=== PATIENT | female | born 1980 | race Hispanic/Latino ===

== ENCOUNTER → 2018-12-14 | Outpatient (CLI) | payer OTHER ==
--- NOTE | 2018-12-14 09:58 | REP ---
BILATERAL MAMMOGRAM BASELINE STUDY: Family history of breast cancer at age 42 in maternal grandmother. [facility] lifetime risk of breast cancer at 13.2%. MLO and CC view of both breasts performed. Moderate heterogeneous fibroglandular tissue is seen diffusely bilaterally. Asymmetric density is seen in the left axillary tail on the left MLO view. This may simply represent asymmetric fibroglandular tissue in this region. I see no other evidence of mass, architectural distortion or clustered microcalcifications. IMPRESSION: BIRADS 0: BI-RADS/ACR category 0 mammogram, Incomplete: Need additional imaging evaluation and/or prior mammograms for comparison. Asymmetric fibroglandular density in the left axillary tail region only seen on the MLO view. Recommend spot compression MLO view of the left breast at that site and an axillary CC view of the left breast. Other views and ultrasound may also be necessary. This mammogram was interpreted with the aid of an FDA-approved computer-aided detection system. The patient states he/she had a clinical breast exam in 10/2018. The patient letter being requested is M0. Electronically Signed by Wesley Leigh MD 12/14/2018 05:35 P
== END ==
LOC: M RAD 08:56
PROVIDERS: ATTEND Family Medicine
DX: Z12.31 Encounter for screening mammogram for malignant neoplasm of breast (principal)

== ENCOUNTER → 2018-12-26 | Outpatient (CLI) | payer OTHER ==
--- NOTE | 2018-12-26 15:14 | REP ---
DIAGNOSTIC MAMMOGRAM LEFT BREAST WITH LEFT BREAST ULTRASOUND: Spot compression views and tomographic images left breast performed and correlated with the recent baseline mammogram 12/14/2018. Once again there is asymmetric fibroglandular tissue seen in the region of the left axillary tail. A few left axillary nodules are most consistent with left axillary lymph nodes. There is no architectural distortion or suspicious mass in the region of the left axillary tail. Real-time sonographic evaluation of the left axillary tail and adjacent axilla demonstrates a small lymph node which appears to be normal in morphology with an echogenic hilum. This measures 8 x 9 x 11 mm. No other sonographic abnormalities are seen in this region. IMPRESSION: ACR 3 probably benign. Asymmetric fibroglandular tissue in the left axillary tail region is likely a normal variant. There are adjacent lymph nodes which do not appear suspicious. Recommend 6 month followup mammogram of the left breast to ensure stability. BIRADS 3: BI-RADS/ACR category 3 mammogram. Probably Benign Findings. This mammogram was interpreted with the aid of an FDA-approved computer-aided detection system. The patient letter being requested is M3. Electronically Signed by Wesley Leigh MD 12/27/2018 04:19 P
== END ==
LOC: M RAD 11:20
PROVIDERS: ATTEND Family Medicine
DX: R92.2 Inconclusive mammogram (principal); N60.32 Fibrosclerosis of left breast

== ENCOUNTER → 2019-08-16 | Outpatient (CLI) | payer OTHER ==
--- NOTE | 2019-08-16 15:04 | REPMRS ---
Patient History The patient states she has not had a clinical breast exam in over a year. Family history of breast cancer at age 42 in maternal grandmother. Diagnostic Unilateral Mammo: Left Breast - August 16, 2019 - Exam #: [id number] CC and MLO view(s) were taken of the left breast. Technologist: Scarlett Sandhu, Technologist Prior study comparison: December 26, 2018, left breast digital mammo diagnostic unilateral, performed at [facility]. December 14, 2018, bilateral digital mammo screening bilat, performed at [facility]. FINDINGS: The breast tissue is heterogeneously dense. This may lower the sensitivity of mammography. The Volpara volumetric breast density category is: C . The previously noted slightly asymmetric breast parenchymal opacity near the axilla on the left is again noted unchanged. There has been no other change in the appearance of the left breast parenchyma in the interval since the prior examination. No mass, architectural distortion, or microcalcific grouping has developed. No suspicious finding. 3-D tomosynthesis shows no additional findings. Assessment: BI-RADS/ACR Category 3 mammogram. Probably Benign Findings. Recommendation Routine screening mammogram of both breasts in 6 months. This patient's Lifetime Breast Cancer RIsk is estimated at 13.2 %. This mammogram was interpreted with the aid of an FDA-approved computer-aided dectection system. Electronically Signed By: Dennis Hooper MD 08/16/19 [id number]
== END ==
LOC: M WHC 14:08
PROVIDERS: ATTEND Family Medicine
DX: R92.8 Other abnormal and inconclusive findings on diagnostic imaging of breast (principal)
CPT/HCPCS: 77065; G0279

== ENCOUNTER → 2020-02-18 | Outpatient (CLI) | payer OTHER ==
--- NOTE | 2020-02-18 12:56 | REPMRS ---
Patient History The patient states she had a clinical breast exam in 08/14 Family history of breast cancer at age 42 in maternal grandmother. 3D TOMOSYNTHESIS WAS PERFORMED. The [facility] lifetime risk for breast cancer is 13.0%. Volpara breast density c. Digital Woman Screen Mammo: February 18, 2020 - Exam #: [id number] Bilateral CC and MLO view(s) were taken. Technologist: Betina Gonzalez, Technologist Prior study comparison: August 16, 2019, left breast diagnostic unilateral mammo performed at [facility] . December 26, 2018, left breast digital mammo diagnostic unilateral, performed at [facility]. FINDINGS: The breast tissue is heterogeneously dense. This may lower the sensitivity of mammography. There has been no change in the appearance of the mammogram from the prior studies. There is a moderate amount of residual fibroglandular tissue which is fairly symmetric. There is no interval development of dominant mass, areas of architectural distortion, or clustered microcalcification typical of malignancy. Assessment: BI-RADS/ACR category 1 mammogram. Negative Mammogram. Recommendation Routine screening mammogram in 1 year (for women over age 40). This mammogram was interpreted with the aid of an FDA-approved computer-aided dectection system. Electronically Signed By: Wesley Leigh MD 02/18/20 1638
== END ==
LOC: M WHC 11:59
PROVIDERS: ATTEND Registered Nurse Maternal Newborn
DX: Z12.31 Encounter for screening mammogram for malignant neoplasm of breast (principal)

== ENCOUNTER 2020-11-19 10:53 | Day surgery (SDC) | payer OTHER ==
[~2020-11-19] VITALS: Ht 165.1 cm; Wt 67.0 kg
[~2020-11-19 10:53] MED LIST: BUSP30TA PO; CELE100C PO; CHOL25TA8 PO; IRON240T PO; NS 1,000 ML IV ONE
[2020-11-19] MEDS ORDERED: CYMB60CA3 PO (11:58)
[2020-11-19] MEDS ORDERED: propofoL 500 MG/50 ML VIAL As Ordered ONE (12:45)
[2020-11-19] MEDS ORDERED: fentaNYL 100 MCG/2 ML INJECTION (J3010) As Ordered ONE (12:45)
--- NOTE | 2020-11-19 13:18 | ROOR ---
Patient Name: David Carrington Procedure Date: 11/19/2020 1:03 PM Date of : 1980 Age: 40 Room: [facility] Gender: Female Note Status: Finalized Procedure: Upper Endoscopy + Biopsies Indications: Unexplained iron deficiency anemia Providers: Timmy Cohn MD Referring MD: TIARRA MAYEN MD Requesting Provider: Medicines: Monitored Anesthesia Care Complications: No immediate complications. Procedure: Pre-Anesthesia Assessment: - The heart rate, respiratory rate, oxygen saturations, blood pressure, adequacy of pulmonary ventilation, and response to care were monitored throughout the procedure. The Endoscope was introduced through the mouth, and advanced to the second part of duodenum. The upper GI endoscopy was accomplished without difficulty. The patient tolerated the procedure well. Findings: The Z-line was regular and was found 38 cm from the incisors. Multiple biopsies were obtained with cold forceps for evaluation to rule out Hernandez's Esophagus randomly at the gastroesophageal junction. A small hiatal hernia was present. No other significant abnormalities were identified in a careful examination of the stomach. Biopsies were taken with a cold forceps in the gastric antrum for Helicobacter pylori testing. The exam of the duodenum was otherwise normal. Biopsies for histology were taken with a cold forceps in the first portion of the duodenum for evaluation of celiac disease. The exam was otherwise without abnormality. Impression: - Z-line regular, 38 cm from the incisors. - Small hiatal hernia. - The examination was otherwise normal. - Multiple biopsies were obtained at the gastroesophageal junction. - Biopsies were taken with a cold forceps for Helicobacter pylori testing. - Biopsies were taken with a cold forceps for evaluation of celiac disease. - The examination was otherwise normal. Recommendation: - Patient has a contact number available for emergencies. The signs and symptoms of potential delayed complications were discussed with the patient. Return to normal activities tomorrow. Written discharge instructions were provided to the patient. - High fiber diet. - Discharge patient to home. - Follow an antireflux regimen. - Continue present medications. - Await pathology results. - Telephone GI clinic for pathology results in 1 week. - Return to referring physician. - The findings and recommendations were discussed with the patient. Procedure Code(s): --- Professional --- 19699, Esophagogastroduodenoscopy, flexible, transoral; with biopsy, single or multiple Diagnosis Code(s): --- Professional --- K44.9, Diaphragmatic hernia without obstruction or gangrene D50.9, Iron deficiency anemia, unspecified CPT copyright 2019 [employer]. All rights reserved. The codes documented in this report are preliminary and upon philosophy faculty review may be revised to meet current compliance requirements. Timmy Cohn MD Timmy Cohn MD 11/19/2020 1:18:23 PM Electronically signed by Timmy Cohn MD Number of Addenda: 0 Note Initiated On: 11/19/2020 1:03 PM Estimated Blood Loss: Estimated blood loss: none.
--- NOTE | 2020-11-19 13:33 | ROOR ---
Patient Name: Dvaid Carrington Procedure Date: 11/19/2020 1:04 PM Date of : 1980 Age: 40 Room: [facility] Gender: Female Note Status: Finalized Procedure: Total Colonoscopy to Cecum + ileoscopy Indications: Unexplained iron deficiency anemia Providers: Timmy Cohn MD Referring MD: TIARRA MAYEN MD Requesting Provider: Medicines: Monitored Anesthesia Care Complications: No immediate complications. Procedure: Pre-Anesthesia Assessment: - The heart rate, respiratory rate, oxygen saturations, blood pressure, adequacy of pulmonary ventilation, and response to care were monitored throughout the procedure. The Colonoscope was introduced through the anus and advanced to the cecum, identified by appendiceal orifice and ileocecal valve. The colonoscopy was performed without difficulty. The patient tolerated the procedure well. The quality of the bowel preparation was excellent. Findings: The perianal and digital rectal examinations were normal. No other significant abnormalities were identified in a careful examination of the remainder of the colon. The exam was otherwise without abnormality on direct and retroflexion views. The terminal ileum appeared normal. The exam was otherwise without abnormality. Impression: - The examination was otherwise normal on direct and retroflexion views. - The examined portion of the ileum was normal. - The examination was otherwise normal. - No specimens collected. - The exam was otherwise normal to the cecum. Recommendation: - Patient has a contact number available for emergencies. The signs and symptoms of potential delayed complications were discussed with the patient. Return to normal activities tomorrow. Written discharge instructions were provided to the patient. - High fiber diet. - Discharge patient to home. - Continue present medications. - Repeat colonoscopy in 10 years for screening purposes. - Return to referring physician. - The findings and recommendations were discussed with the patient. Procedure Code(s): --- Professional --- 67653, Colonoscopy, flexible; diagnostic, including collection of specimen(s) by brushing or washing, when performed (separate procedure) Diagnosis Code(s): --- Professional --- D50.9, Iron deficiency anemia, unspecified CPT copyright 2019 [employer]. All rights reserved. The codes documented in this report are preliminary and upon jewelry estimator review may be revised to meet current compliance requirements. Timmy Cohn MD Timmy Cohn MD 11/19/2020 1:32:47 PM Electronically signed by Timmy Cohn MD Number of Addenda: 0 Note Initiated On: 11/19/2020 1:04 PM Estimated Blood Loss: Estimated blood loss: none.
[2020-11-19 13:55] VITALS: BP 112/62
== END 2020-11-19 14:07 | disposition home or self-care (01) ==
LOC: M OPP 10:53
PROVIDERS: ATTEND Internal Medicine Gastroenterology
DX: D50.9 Iron deficiency anemia, unspecified (principal); K44.9 Diaphragmatic hernia without obstruction or gangrene; K59.00 Constipation, unspecified; K62.5 Hemorrhage of anus and rectum; R12 Heartburn; Z79.899 Other long term (current) drug therapy; F45.8 Other somatoform disorders
CPT/HCPCS: 43239; 45378; 88305; J3010

== ENCOUNTER 2021-01-28 09:47 | Day surgery (SDC) | payer OTHER ==
[~2021-01-28] VITALS: Ht 165.1 cm; Wt 68.5 kg
[~2021-01-28 09:47] MED LIST changes: +ACETAMINOPHEN 650 MG SUPP PR ONE; +CVS1CAP2 PO; +CYMB60CA4 PO; +LIDOCAINE 1% MDV 20ML VIAL SQ PRN; +LR 1,000 ML IV ONE; -NS 1,000 ML IV ONE
--- OUTSIDE RECORDS SUMMARY | 2021-01-28 09:51 | CCD | Continuity of Care Document ---
Author Author David COHN Organization Unknown Address [address] [place] [address] Phone [phone] Care Team Providers Care Historian Research Assistant Name Role Phone Wally Delgado MD [facility] [phone] Problems Active Problems Provider Date Jada Cohn M.D. Onset: 10/17/19 21 Social History Type Date Description Comments Sex Unknown ETOH Use Occasionally Tobacco Use Start: Unknown Patient has never smoked Allergies, Adverse Reactions, Alerts Description No Known Drug Allergies Medications Active Medications SIG Qnty Indications Ordering Provide r Date Omeprazole 40mg Capsules DR 1 cap by mouth every morning 90caps Timmy Cohn M.D. 021 Sutab [id number] Tablets as directed 1box Timmy Cohn M.D. 10/16/[address] Part 1 by mouth every morning and evening Unknown Buspirone HCL 5mg Tablets Unknown Probiotic Capsules Unknown Immunizations Description No Information Available Vital Signs Date Vital Result Comment 10/16/2020 9:17am Height 65 inches 5'5" Weight 142.00 lb BP Systolic 129 mmHg BP Diastolic 80 mmHg Heart Rate 78 /min BMI (Body Mass Index) 23.6 kg/m2 Weight 64.411 kg Body Temperature 97.2 F Results Test Acquired Date Facility Test Result H/L Range Note Laboratory test finding 11/19/2020 [facility] [address] [place] [id number] Pathology Request For Service (SEE NOTE) 1, 2 1 FINAL DIAGNOSIS A - Small bowel, biopsy: Small intestinal mucosa with intact villous architecture and no increase in intraepithelial lymphocytes. No evidence for celiac disease. B - Stomach, antrum, biopsy: Mild reactive gastropathy. No evidence for H. pylori like organisms on H & E stain. C - Below Z line, biopsy: Junctional mucosa with chronic inflammation and intestinal metaplasia. No evidence for dysplasia. 11/20/2020 - 1203 CLINICAL DIAGNOSIS Anemia 11/20/2020 - 0737 GROSS DIAGNOSIS A - Received in formalin labeled "small bowel biopsy" consists of two asinz fragments, 0.6 x 0.5 x 0.2 cm in aggregate. All in one. B - Received in formalin labeled "antrum biopsy" consists of one sainz fragment, 0.4 x 0.3 x 0.2 cm. All in one. C - Received in formalin labeled "below Z-line biopsy" consists of three sainz fragments, 0.6 x 0.5 x 0.2 cm in aggregate. All in one. -SV 11/20/2020 - 0737 Signed CATHRYN WALKER MD 11/20/2020 1237 2 12/03/20 (TueDec 03) 09:48 A Jade COHN biopsies are all negative,except for intestinal metaplasia no dysplasia. Maintain meds for heartburn egd in 3 yrs. Procedures Date Code Description Status 11/19/2020 75642 Colonoscopy Flexible Diagnostic Completed 11/19/2020 28470 Endoscopy Upper GI Biopsy Comple maura 10/16/2020 73637 Office/Outpatient New Moderate M DM 45-59 Minutes Completed Medical Devices Description No Information Available Encounters Type Date Location Provider Dx Diagnosis Office Visit 10/16/2020 9:15a Main Office Timmy Cohn M.D. D 64.9 Anemia, unspecified K59.00 Constipation, unspecified Assessments Date Code Description Provider 11/19/2020 D64.9 Anemia, unspecified Timmy hassan M.D. 11/19/2020 K31.89 Other diseases of stomach and du odenum Timmy Cohn M.D. 11/19/2020 K44.9 Diaphragmatic hernia without obs truction or gangrene Timmy Cohn M.D. 10/16/2020 D64.9 Anemia, unspecified Timmy hassan M.D. 10/16/2020 K59.00 Constipation, unspecified Timmy Cohn M.D. Plan of Treatment 10/16/2020 - Timmy Cohn M.D.* D64.9 Anemia, unspecified* Comments:* 40 yo wf who presents with a h/o chronic constipation/rectal bleeding/globus sen sation, and anemia. Pt has a low ferritin level. She has had heavy periods. No c/o abdominal pain, weight loss, change in bowel habits, or rectal bleeding. No family h/o colon cancer. No h/o chest pain, or sob. Plan:1. Colonoscopy to cecum + egd2. High fiber diet3. Miralax bid. * K59.00 Constipation, unspecified* Comments:* 1. Schedule for a Colonoscopy.2. Informed consent given. Functional Status Description No Information Available Mental Status Description No Information Available Referrals Refer to Reason for Referral Status Appt Date Timmy Cohn M.D. Created [address] [place] [id number] [phone]
--- OUTSIDE RECORDS SUMMARY | 2021-01-28 09:51 | CCD | Continuity of Care Document ---
Author Author David COHN Organization Unknown Address [address] [place] [address] Phone [phone] Care Team Providers Care Salvage Cutter Name Role Phone Wally Delgado MD [facility] [phone] Problems Active Problems Provider Date Anemia Timmy Cohn M.D. Onset: 10/17/19 21 Social History Type Date Description Comments Sex Unknown ETOH Use Occasionally Tobacco Use Start: Unknown Patient has never smoked Allergies, Adverse Reactions, Alerts Description No Known Drug Allergies Medications Active Medications SIG Qnty Indications Ordering Provide r Date Omeprazole 40mg Capsules DR 1 cap by mouth every morning 90caps Timmy Cohn M.D. 021 Sutab [id number] Tablets as directed 1box Timmy Cohn M.D. 10/16/[address] Part 1 by mouth every morning and evening Unknown / Buspirone HCL 5mg Tablets Unknown Probiotic Capsules Unknown Immunizations Description No Information Available Vital Signs Date Vital Result Comment 10/16/2020 9:17am Height 65 inches 5'5" Weight 142.00 lb BP Systolic 129 mmHg BP Diastolic 80 mmHg Heart Rate 78 /min BMI (Body Mass Index) 23.6 kg/m2 Weight 64.411 kg Body Temperature 97.2 F Results Description No Information Available Procedures Date Code Description Status 11/19/2020 58222 Colonoscopy Flexible Diagnostic Completed 11/19/2020 68288 Endoscopy Upper GI Biopsy Comple maura 10/16/2020 30909 Office/Outpatient New Moderate M DM 45-59 Minutes Completed Medical Devices Description No Information Available Encounters Type Date Location Provider Dx Diagnosis Office Visit 10/16/2020 9:15a Main Office Timmy Cohn M.D. D 64.9 Anemia, unspecified K59.00 Constipation, unspecified Assessments Date Code Description Provider 11/19/2020 D64.9 Anemia, unspecified Timmy SSunshine hassan M.D. 11/19/2020 K31.89 Other diseases of stomach and du odenum Timmy Cohn M.D. 11/19/2020 K44.9 Diaphragmatic hernia without obs truction or gangrene Timmy Cohn M.D. 10/16/2020 D64.9 Anemia, unspecified Timmy SSunshine hassan M.D. 10/16/2020 K59.00 Constipation, unspecified Timmy [...] Appt Date Timmy Cohn M.D. Created [address] [place] [address] [phone]
--- OUTSIDE RECORDS SUMMARY | 2021-01-28 09:51 | CCD | Continuity of Care Document ---
Author Author David KUMAR Organization Unknown Address [address] [place] [address] Phone [phone] Care Team Providers Care Sales Office Manager Name Role Phone Robert Fontana MD [facility] Unavailable [facility] Problems Description No Information Available Social History Type Date Description Comments Sex Unknown ETOH Use Occasionally consumes alcohol Tobacco Use Start: Unknown The patient has never vaped Tobacco Use Start: Unknown Patient has never smoked Allergies, Adverse Reactions, Alerts Description No Known Drug Allergies Medications Active Medications SIG Qnty Indications Ordering Provide r Date Vitamin D (Ergocalciferol) Unknown Probiotic Unknown Vitamin E Unknown Mirena (52 MG) Unknown Immunizations Description No Information Available Vital Signs Date Vital Result Comment 10/03/2020 12:17pm BP Systolic 112 mmHg BP Diastolic 80 mmHg Heart Rate 86 /min Respiratory Rate 14 /min O2 % BldC Oximetry 98 % Body Temperature 97.5 F Weight 135.00 lb Height 64 inches 5'4" BMI (Body Mass Index) 23.2 kg/m2 Pain Level 0 Results Description No Information Available Procedures Date Code Description Status 10/03/2020 28150 Preventive Visit New 40-64 Yrs C ompleted Medical Devices Description No Information Available Encounters Type Date Location Provider Dx Diagnosis Office Visit 10/03/2020 12:15p Main Office MINNIE Reaves Z20 .1 Contact with and (suspected) exposure to tuberculosis Assessments Date Code Description Provider 10/03/2020 Z20.1 Contact with and (suspected) exp osure to tuberculosis MINNIE Reaves Plan of Treatment No Information Available Functional Status Description No Information Available Mental Status Description No Information Available Referrals Refer to Reason for Referral Status Appt Date [facility] [address] [place] [place] [address]
--- OUTSIDE RECORDS SUMMARY | 2021-01-28 09:51 | CCD ---
Author Author [facility] Organization [facility] Address Unknown Phone Unavailable Care Team Providers Care Graduation Coach Name Role Phone NO, PCP Unavailable Unavailable Bob Cohn MD Unavailable Unavailable Bob Cohn MD Unavailable Unavailable Bob Cohn MD Unavailable Unavailable Bob Cohn MD Unavailable Unavailable Bob Cohn MD Unavailable Unavailable Bob Cohn MD Unavailable Unavailable Bob Cohn MD Unavailable Unavailable Bob Cohn MD Unavailable Unavailable Bob Cohn MD Unavailable Unavailable Bob Cohn MD Unavailable Unavailable Bob Cohn MD Unavailable Unavailable Bob Cohn MD Unavailable Unavailable Bob Cohn MD Unavailable Unavailable Bob Cohn MD Unavailable Unavailable Bob Cohn MD Unavailable Unavailable Bob Cohn MD Unavailable Unavailable Bob Cohn MD Unavailable Unavailable Bob Cohn MD Unavailable Unavailable Bob Cohn MD Unavailable Unavailable Bob Cohn MD Unavailable Unavailable Bob Cohn MD Unavailable Unavailable Bob Cohn MD Unavailable Unavailable Bob Cohn MD Unavailable Unavailable Bob Cohn MD Unavailable Unavailable Bob Cohn MD Unavailable Unavailable Bob Cohn MD Unavailable Unavailable Bob Cohn MD Unavailable Unavailable Bob Cohn MD Unavailable Unavailable Suki, S Itmmy MD Unavailable Unavailable Suki, S Timmy MD Unavailable Unavailable Suki, S Timmy MD Unavailable Unavailable Suki, S Timmy MD Unavailable Unavailable Suki, S Timmy MD Unavailable Unavailable Suki, S Timmy MD Unavailable Unavailable Suki, S Timmy MD Unavailable Unavailable Suki, S Timmy MD Unavailable Unavailable Suki, S Timmy MD Unavailable Unavailable Suki, S Timmy MD Unavailable Unavailable Suki, S Timmy MD Unavailable Unavailable Suki, S Timmy MD Unavailable Unavailable Suki, S Timmy MD Unavailable Unavailable Suki, S Timmy MD Unavailable Unavailable Suki, S Timmy MD Unavailable Unavailable Suki, S Timmy MD Unavailable Unavailable Suki, S Timmy MD Unavailable Unavailable Suki, S Timmy MD Unavailable Unavailable Suki, S Timmy MD Unavailable Unavailable Suki, S Timmy MD Unavailable Unavailable Suki, S Timmy MD Unavailable Unavailable Suki, S Timmy MD Unavailable Unavailable LETTIERE, A ELIZABETH PA Unavailable Unavailable LETTIERE, A ELIZABETH PA Unavailable Unavailable LETTIERE, A ELIZABETH PA Unavailable Unavailable LETTIERE, A ELIZABETH PA Unavailable Unavailable LETTIERE, A ELIZABETH PA Unavailable Unavailable LETTIERE, A ELIZABETH PA Unavailable Unavailable LETTIERE, A ELIZABETH PA Unavailable Unavailable LETTIERE, A ELIZABETH PA Unavailable Unavailable LETTIERE, A ELIZABETH PA Unavailable Unavailable LETTIERE, A ELIZABETH PA Unavailable Unavailable LETTIERE, A ELIZABETH PA Unavailable Unavailable LETTIERE, A ELIZABETH PA Unavailable Unavailable LETTIERE, A ELIZABETH PA Unavailable Unavailable LETTIERE, A ELIZABETH PA Unavailable Unavailable LETTIERE, A ELIZABETH PA Unavailable Unavailable LETTIERE, A ELIZABETH PA Unavailable Unavailable LETTIERE, A ELIZABETH PA Unavailable Unavailable LETTIERE, A ELIZABETH PA Unavailable Unavailable LETTIERE, A ELIZABETH PA Unavailable Unavailable LETTIERE, A ELIZABETH PA Unavailable Unavailable LETTIERE, A ELIZABETH PA Unavailable Unavailable LETTIERE, A ELIZABETH PA Unavailable Unavailable LETTIERE, A ELIZABETH PA Unavailable Unavailable LETTIERE, A ELIZABETH PA Unavailable Unavailable LETTIERE, A ELIZABETH PA Unavailable Unavailable LETTIERE, A ELIZABETH PA Unavailable Unavailable LETTIERE, A ELIZABETH PA Unavailable Unavailable LETTIERE, A ELIZABETH PA Unavailable Unavailable LETTIERE, A ELIZABETH PA Unavailable Unavailable LETTIERE, A ELIZABETH PA Unavailable Unavailable LETTIERE, A ELIZABETH PA Unavailable Unavailable Yeimy Diaz [facility] Unavailable Unavailable Yeimy Diaz [facility] Unavailable Unavailable [facility], [phone] Unavailable Unavailable DIALLO, J JO-ANN PA Unavailable Unavailable DIALLO, J JO-ANN PA Unavailable Unavailable DIALLO, J JO-ANN PA Unavailable Unavailable DIALLO, J JO-ANN PA Unavailable Unavailable DIALLO, J JO-ANN PA Unavailable Unavailable DIALLO, J JO-ANN PA Unavailable Unavailable DIALLO, J JO-ANN PA Unavailable Unavailable DIALLO, J JO-ANN PA Unavailable Unavailable DIALLO, J JO-ANN PA Unavailable Unavailable DIALLO, J JO-ANN PA Unavailable Unavailable DIALLO, J JO-ANN PA Unavailable Unavailable DIALLO, J JO-ANN PA Unavailable Unavailable DIALLO, J JO-ANN PA Unavailable Unavailable DIALLO, J JO-ANN PA Unavailable Unavailable DIALLO, J JO-ANN PA Unavailable Unavailable DIALLO, J JO-ANN PA Unavailable Unavailable DIALLO, J JO-ANN PA Unavailable Unavailable DIALLO, J JO-ANN PA Unavailable Unavailable DIALLO, J JO-ANN PA Unavailable Unavailable DIALLO, J JO-ANN PA Unavailable Unavailable DIALLO, J JO-ANN PA Unavailable Unavailable DIALLO, J JO-ANN PA Unavailable Unavailable DIALLO, J JO-ANN PA Unavailable Unavailable DIALLO, J JO-ANN PA Unavailable Unavailable DIALLO, J JO-ANN PA Unavailable Unavailable DIALLO, J JO-ANN PA Unavailable Unavailable DIALLO, J JO-ANN PA Unavailable Unavailable DIALLO, J JO-ANN PA Unavailable Unavailable DIALLO, J JO-ANN PA Unavailable Unavailable DIALLO, J JO-ANN PA Unavailable Unavailable DIALLO, J JO-ANN PA Unavailable Unavailable DIALLO, J JO-ANN PA Unavailable Unavailable DIALLO, J JO-ANN PA Unavailable Unavailable DIALLO, J JO-ANN PA Unavailable Unavailable DIALLO, J JO-ANN PA Unavailable Unavailable DIALLO, J JO-ANN PA Unavailable Unavailable DIALLO, J JO-ANN PA Unavailable Unavailable DIALLO, J JO-ANN PA Unavailable Unavailable DIALLO, J JO-ANN PA Unavailable Unavailable DIALLO, J JO-ANN PA Unavailable Unavailable DIALLO, J JO-ANN PA Unavailable Unavailable DIALLO, J JO-ANN PA Unavailable Unavailable DIALLO, J JO-ANN PA Unavailable Unavailable DIALLO, J JO-ANN PA Unavailable Unavailable DIALLO, J JO-ANN PA Unavailable Unavailable DIALLO, J JO-ANN PA Unavailable Unavailable DIALLO, J JO-ANN PA Unavailable Unavailable DIALLO, J JO-ANN PA Unavailable Unavailable DIALLO, J JO-ANN PA Unavailable Unavailable DIALLO, J JO-ANN PA Unavailable Unavailable DIALLO, J JO-ANN PA Unavailable Unavailable DIALLO, J JO-ANN PA Unavailable Unavailable DIALLO, J JO-ANN PA Unavailable Unavailable DIALLO, J JO-ANN PA Unavailable Unavailable FELIPE, FRANCES ELECTRICAL CONTACTS ADJUSTER Unavailable Unavailable FELIPE, FRANCES ELECTRICAL CONTACTS ADJUSTER Unavailable Unavailable Huan Alex MD Unavailable Unavailable Huan Alex MD Unavailable Unavailable Huan Alex MD Unavailable Unavailable Huan Alex MD Unavailable Unavailable Huan Alex MD Unavailable Unavailable Huan Alex MD Unavailable Unavailable Re-disclosure Warning The records that you are about to access may contain information from federally-assisted alcohol or drug abuse programs. If such information is present, then the following federally mandated warning applies: This information has been disclosed to you from records protected by federal confidentiality rules (42 CFR part 2). The federal rules prohibit you from making any further disclosure of this information unless further disclosure is expressly permitted by the written consent of the person to whom it pertains or as otherwise permitted by 42 CFR part 2. A general authorization for the release of medical or other information is NOT sufficient for this purpose. The Federal rules restrict any use of the information to criminally investigate or prosecute any alcohol or drug abuse patient.The records that you are about to access may contain highly sensitive health information, the redisclosure of which is protected by Article 27-F of the [facility] Public Health law. If you continue you may have access to information: Regarding HIV / AIDS; Provided by facilities licensed or operated by the [facility] Office of Mental Health; or Provided by the [facility] Office for People With Developmental Disabilities. If such information is present, then the following [facility] mandated warning applies: This information has been disclosed to you from confidential records which are protected by state law. State law prohibits you from making any further disclosure of this information without the specific written consent of the person to whom it pertains, or as otherwise permitted by law. Any unauthorized further disclosure in violation of state law may result in a fine or shelter sentence or both. A general authorization for the release of medical or other information is NOT sufficient authorization for further disc losure. Allergies and Adverse Reactions Type Description Substance Reaction Status Data Source(s ) Drug allergy CODEINE [facility] Encounters Encounter Providers Location Date Indications Data Source(s ) Outpatient Attender: Timmy Cohn MD Main Office 10/16/2020 09:15:00 AM EDT [facility] ([facility]) Outpatient Attender: ELIZABETH burkett 10/03/2020 12:15:00 PM EDT [facility] ([facility] Outpatient Attender: JO-ANN HARTMAN [facility] 09/18 09:00:00 AM EDT [facility] ([facility]) Outpatient Attender: JO-ANN DIALLO PAConsultant: PCP NO 09/18/2020 08:52:00 AM EDT - 09/18/2020 08:52:00 AM EDT [facility] Outpatient Attender: JO-ANN DIALLO PAConsultant: PCP NO 08/18/2020 10:04:00 AM EDT - 08/18/2020 10:04:00 AM EDT [facility] Outpatient Attender: JO-ANN HARTMAN Family Practice 08/18 10:00:00 AM EDT [facility] ([facility]) Outpatient Attender: Yeimy Diaz MHCConsultant: PCP NO 07/24/2020 11:03:00 AM EDT - 07/24/2020 11:03:00 AM EDT [facility] Out[facility] Attender: JO-ANN DIALLO PAConsultant: PCP NO 07/10/2020 12:40:00 PM EDT - 07/10/2020 12:40:00 PM EDT [facility] Outpatient Attender: JO-ANN HARTMAN [facility] 07/10 12:40:00 PM EDT [facility] ([facility]) Outpatient Attender: Yeimy Diaz MHCConsultant: PCP NO 07/10/2020 11:55:00 AM EDT - 07/10/2020 11:55:00 AM EDT [facility] Outpatient Attender: Yeimy Diaz MHCConsultant: PCP NO 06/24/2020 10:51:00 AM EDT - 06/24/2020 10:51:00 AM EDT [facility] Outpatient Attender: JO-ANN DIALLO PAConsultant: PCP NO 06/04/2020 08:12:00 AM EST - 06/04/2020 08:12:00 AM EST [facility] Outpatient Attender: JO-ANN HARTMAN [facility] 06/04 07:20:00 AM EST [facility] ([facility]) Outpatient Attender: Yeimy Diaz MHCConsultant: PCP NO 05/29/2020 10:51:00 AM EST - 05/29/2020 10:51:00 AM EST [facility] Out[facility] Attender: Yeimy PALACIOS ttender: JO-ANN DIALLO PAConsultant: PCP NO 05/08/2020 10:32:00 AM EST - 05/08/2020 10:32:00 AM [facility] Outpatient Attender: Yeimy PALACIOS ttender: JO-ANN DIALLO PAConsultant: PCP NO 05/08/2020 09:59:00 AM EST - 05/08/2020 09:59:00 AM [facility] Outpatient Attender: Yeimy Diaz MHCConsultant: PCP NO 04/15/2020 10:36:00 AM EST - 04/15/2020 10:36:00 AM EST [facility] Out[facility] Attender: JO-ANN DIALLO PAConsultant: PCP NO 04/02/2020 09:55:00 AM EST - 04/02/2020 09:55:00 AM EST [facility] Outpatient Attender: [id number] 04/02/2020 09:00:00 AM EST [facility] ([facility]) Outpatient Attender: Yeimy Diaz MHCConsultant: PCP NO 04/01/2020 10:57:00 AM EST - 04/01/2020 10:57:00 AM EST [facility] Out[facility] Attender: Marcelino Alex MDConsultant: PCP NO 03/10/2020 06:30:00 AM EST - 03/10/2020 10:30:00 AM [facility] Patient discharged. Outpatient Attender: FRANCES WANG LMSW 12:46:00 PM EST - 03/06/2020 12:46:00 PM [facility] Outpatient Attender: Marcelino Alex MDConsultant: PCP NO 03/05/2020 10:09:17 AM EST - 03/06/2020 04:00:00 PM [facility] Patient discharged. Immunizations Vaccine Date Status Description Data Source(s) COVID-19 VACC, MRNA(PFIZER)/PF 01/09/2021 12:00:00 AM EDT completed [facility] COVID-19 VACCINE Pfizer 01/09/2021 12:00:00 AM EDT completed [facility] Vaccine Series Complete: YESThis Data wa s Submitted to [facility] Via [facility]. COVID-19 VACCINE Pfizer 04/29/2020 12:00:00 AM EST completed [facility] Vaccine Series Complete: NOThis Data was Submitted to [facility] [employer]. Medications Medication Brand Name Start Date Product Form Dose Route Admi nistrative Instructions Pharmacy Instructions Status Indications Reaction Description Data Source(s) Sutab Sutab 10/16/2020 12:00:00 AM EDT active [facility] ([facility]) Omeprazole 40 MG Delayed Release Oral Capsule Omeprazole 10/16/2020 12:00:00 AM EDT ORAL active [facility] ([facility]) Clonidine Hydrochloride 0.1 MG Oral Tablet Clonidine HCL 09/18/2020 12:00:00 AM EDT ORAL active [facility] ([facility]) buspirone hydrochloride 15 MG Oral Tablet Buspirone HCL 08/18/2020 12:00:00 AM EDT ORAL active [facility] ([facility]) buspirone hydrochloride 7.5 MG Oral Tablet Buspirone HCL 07/10/2020 12:00:00 AM EDT ORAL completed [facility] ([facility]) vilazodone hydrochloride 20 MG Oral Tablet [Viibryd] Viibryd 06/04/2020 12:00:00 AM EST ORAL completed [facility] ([facility]) Naltrexone hydrochloride 50 MG Oral Tablet Naltrexone HCL 05/08/2020 12:00:00 AM EST ORAL completed [facility] ([facility]) Alprazolam 0.5 MG Oral Tablet Alprazolam 02/01/2020 12:00:00 AM EST completed [facility] ([facility]) Flublok Quadrivalent Flublok Quadrivalent 01/03/2020 12:00:00 AM EDT completed [facility] ([facility]) Zolpidem tartrate 10 MG Oral Tablet Zolpidem Tartrate 10/2019 12:00:00 AM EDT ORAL active [facility] ([facility]) Insurance Providers Payer name Policy type / Coverage type Policy ID Covered constitution party ID Covered constitution party's relationship to newman Policy Newman Plan Information [facility] [id number] [facility] [id number] [facility] [place] [id number] 01 [id number] [facility] [place] [id number] 01 [id number] [facility] - [facility]/P [id number] 18 [id number] [facility] REG O [id number] S [id number] [employer] O [id number] S [id number] [facility] [id number] [facility] [id number] Problems, Conditions, and Diagnoses Code Display Name Description Problem Type Effective Dates Data Source(s) F1010 Alcohol abuse, uncomplicated Alcohol abuse, uncomplica maura Diagnosis 08/18/2020 10:04:00 AM EDT [facility] F419 Anxiety disorder, unspecified Anxiety disorder, unspec ified Diagnosis 08/18/2020 10:04:00 AM EDT [facility] F609 Personality disorder, unspecified Personality di sorder, unspecified Diagnosis 08/18/2020 10:04:00 AM EDT [facility] F339 Major depressive disorder, recurrent, un specified Major depressive disorder, recurrent, unspecified Diagnosis 08/18/2020 10:04:00 AM T [facility] F424 Excoriation (skin-picking) disorder Excoriation (skin-picking) disorder Diagnosis 04/15/2020 10:36:00 AM [facility] M6752 Plica syndrome, left knee Plica syndrome, left knee Di agnosis 03/10/2020 06:30:00 AM [facility] [id number] Pain in left knee Pain in left knee Diagnosis 03/10/2020 06:30:00 AM [facility] [id number] Encounter for other preprocedural examin ation Encounter for other preprocedural examination Diagnosis 03/06/2020 03:00:00 PM [facility] [id number] Anemia Anemia Problem 10/16/2020 12:00:00 AM ED T [facility] ([facility]) Surgeries/Procedures Procedure Description Date Indications Data Source(s) UPPER NDSC BIOPSY SINGLE/MULTIPLE 11/19/2020 12:00:00 AM EDT [facility] ([facility]) COLONOSCOPY FLX DX W/WO COLLJ SPECIMENS 11/19/2020 12: 00:00 AM EDT [facility] ([facility]) OFFICE OUTPATIENT NEW 45 MINUTES 10/16/2020 12:00:00 A M EDT [facility] ([facility]) INITIAL PREVENTIVE MEDICINE NEW PATIENT 40-64YRS 10/03 12:00:00 AM EDT [facility] ([facility]) OFFICE OUTPATIENT VISIT 25 MINUTES 09/18/2020 12:00:00 AM EDT [facility] ([facility]) OFFICE OUTPATIENT VISIT 25 MINUTES 08/18/2020 12:00:00 AM EDT [facility] ([facility]) OFFICE OUTPATIENT VISIT 25 MINUTES 07/10/2020 12:00:00 AM EDT [facility] ([facility]) OFFICE OUTPATIENT VISIT 25 MINUTES 06/04/2020 12:00:00 AM EST [facility] ([facility]) Psychiatric Diag Eval W/Medical Service 05/08/2020 12: 00:00 AM EST [facility] ([facility]) PREVENT MED LIVESTOCK BRANDS INSPECTOR&/RISK FACTOR REDJ SPX 45 MIN 04/02 12:00:00 AM EST [facility] ([facility]) Psychiatric Diagnostic Evaluation 03/06/2020 12:00:00 AM EST [facility] ([facility]) Results ID Date Data Source [id number] 01/23/2021 08:39:00 AM EDT [facility] Name Value Range Interpretation Code Description Data Tanika rce(s) Supporting Document(s) SARS coronavirus 2 RNA Not Detected [facility] This lab was ordered by [facility] and reported by [facility]. ID Date Data Source [id number] 01/02/2021 12:00:00 AM EDT [facility] Name Value Range Interpretation Code Description Data Tanika rce(s) Supporting Document(s) SARS-CoV2 Rapid Antigen Negative [facility] This lab was ordered by [facility] and reported by [facility]. ID Date Data Source [id number] 11/19/2020 01:32:00 PM EDT [facility] ([facility]) Name Value Range Interpretation Code Description Data Tanika rce(s) Supporting Document(s) Surgical pathology study [facility]) <content>FINAL DIAGNOSIS</content>
< content></content>
<content>A - Small bowel, biopsy:</content>
<content>Small intestinal mucosa with intact villous architecture and no increase</content>
<content>in intraepithelial lymphocytes.</content>
<content>No evidence for celiac disease.</content>
<content></content>
<content>B - Stomach, antrum, biopsy:</content>
<content>Mild reactive gastropathy.</content>
<content>No evidence for H. pylori like organisms on H & E stain.</content>
<content></content>
<content>C - Below Z line, biopsy:</content>
<content>Junctional mucosa with chronic inflammation and intestinal</content>
<content>metaplasia.</content>
<content>No evidence for dysplasia.</content>
<content>11/20/2020 - 1203</content>
<content> </content>
<content>CLINICAL DIAGNOSIS</content>
<content></content>
<content>Anemia</content>
<c ontent>11/20/2020 - 0737</content>
<content></content>
<content>GROSS DIAGNOSIS</content>
<content></content>
<content>A - Received in formalin labeled "small bowel biopsy" consists of two</content>
<content>sainz fragments, 0.6 x 0.5 x 0.2 cm in aggregate. All in one.</content>
<content></content>
<content>B - Received in formalin labeled "antrum biopsy" consists of one sainz</content>
<content>fragment, 0.4 x 0.3 x 0.2 cm. All in one.</content>
<content></content>
<content>C - Received in formalin labeled "below Z-line biopsy" consists of three</content>
<content>sainz fragments, 0.6 x 0.5 x 0.2 cm in aggregate. All in one.</content>
<content>-SV</content>
<content>11/20/2020 - 0737</content>
<content></content>
<content>Signed CATHRYN WALKER MD 11/20/2020 1237</content>
<content></content> ID Date Data Source [id number] 03/10/2020 09:33:00 [place] [address] OPERATIVE SUMMARYNAME: DIANN Red DATE OF : 1980ATTENDING PHYS: Marcelino Alex MD DATE: 03/10/20 MR#: [id number] OF PROCEDURE: 03/10/2020SURGEON: Marcelino Alex MD.BEAM DOFFER: GONZALEZ Webb.INDICATION FOR OPERATION:The patient is a 39-year-old female who presented to the clinic with a 20 year history of long-standing knee pain that has been refractive to non-operative treatment. She had exam and imagingfindings consistent with possible fat pad impingement. She was indicated for diagnosticarthroscopy after failing non-operative treatment. She was counseled on risks, benefits, andalternatives. She demonstrated understanding of the risks of surgery to include, but not limited toinfection, bleeding, damage to local structures, pain, stiffness, need for further surgery, and she wasable to sign informed consent, all questions were answered to her full satisfaction.PRE-OP DIAGNOSIS: Left knee fat pad impingement.POST-OP DIAGNOSIS: Left knee fat pad hypertrophy/impingement with medial and lateralparapatellar plica.MATERIAL FORWARDED: None.DESCRIPTION OF THE FINDINGS:Patient had a medial and lateral parapatellar plica and these were resected with a burner, and then afat pad which was hypertrophied underwent debridement to clear the area of the hypertrophic fatpad. 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 Left knee arthroscopy with debridement of fat pad. 2. Medial and lateral parapatellar plica resection.DESCRIPTION OF OPERATION: [address] [place] [address] OPERATIVE SUMMARYNAME: DIANN Red DATE OF : 1980ATTENDING PHYS: Marcelino Alex MD DATE: 03/10/20 MR#: [id number] patient was met in the pre-op holding area, where correct name, identity, operative side, andname of procedure were confirmed to be correct without discrepancies. The left knee was markedby myself. The patient was then taken back to the OR by nursing and anesthesia provider, placedsupine on the operating room table. A thigh pneumatic tourniquet was placed on the left lowerextremity. SCD was placed on the contralateral leg to remain on throughout the case. All bonyprominences were padded in the standard fashion. The patient then underwent general anestheticand placement of advanced airway without complication. The patient's left lower extremity wasprepped and draped in the usual sterile fashion. Time- out was then called, and the patient'soperative site, procedure, and identity were confirmed. Also confirmed administration of antibioticadministration of Ancef within one hour of incision as well.The tourniquet was inflated to 250 mmHg after undergoing Esmarch exsanguination. Totaltourniquet time was 25 minut .A standard diagnostic arthroscopy was carried out with anterolateral portal to start. Other than whatwas above in the findings, all was unremarkable. After evaluation of the suprapatellar pouch,medial and lateral gutters, and the patellofemoral joint, the medial compartment was assessed andanteromedial accessory portal was placed for further evaluation. Once fat pad debridement andplica resection was completed, the arthroscope was removed. The wounds were infiltrated with0.25% Marcaine for pain relief. The patient then had her portal sites closed and dressings wereapplied. She was aroused from anesthesia, having tolerated the procedure well without anycomplication.Post-operatively she will be weightbearing as tolerated, remain in her dressing for the next 3-5days. She will start physical therapy schedule, and return to see us for follow up in 10- 14 days forwound check.DD: Marcelino Alex MD 03/10/20 08:52DT: ALDAIR 03/10/20 08:57DS: Marcelino Alex MD 04/03/20 20:58 [address] [place] [address] OPERATIVE SUMMARYNAME: DIANN Red DATE OF : 1980ATTENDING PHYS: Marcelino Alex MD DATE: 03/10/20 MR#: [id number] Name Value Range Interpretation Code Description Data Tanika rce(s) Supporting Document(s) ID Date Data Source [id number] 04/02/2020 10:42:00 AM EST [facility] ([facility]) Name Value Range Interpretation Code Description Data Tanika rce(s) Supporting Document(s) Laboratory test finding (navigational concept) [facility] result [facility] {DIAGNOSIS: F33.9~{MEDICATIONS/DECLARED : ALPRAZOLAM CELEBREX CYMBALTA LEXAPRO~{PRESCRIPTION INF PDF Laboratory test result [facility] ([facility]) {DIAGNOSIS: F33.9~{MEDICATIONS/DECLARED : ALPRAZOLAM CELEBREX CYMBALTA LEXAPRO~{PRESCRIPTION INF ID Date Data Source [id number] 04/09/2020 03:04:00 PM EST [facility] Name Value Range Interpretation Code Description Data Tanika rce(s) Supporting Document(s) Drugs identified in Urine FINAL [facility] TOXASSURE SELECT 13 (MW) Test Result Flag UnitsDrug Absent but Declared for Prescription Verification Alprazolam Not Detected UNEXPECTED ng/mg creat Test Result Flag Units Ref Range Creatinine 247 mg/dL >=20 Declared Medications: The flagging and interpretation on this report are based on the following declared medications. Unexpected results may arise from inaccuracies in the declared medications. Note: The testing scope of this panel includes these medications: Alprazolam Note: The testing scope of this panel does not include following reported medications: Celecoxib (Celebrex) Duloxetine (Cymbalta) Escitalopram (Lexapro) Lidocaine Zolpidem (Ambien) For clinical consultation, please call . Report . [facility] ID Date Data Source [id number] 03/10/2020 07:48:00 AM EST [facility] Name Value Range Interpretation Code Description Data Tanika rce(s) Supporting Document(s) HCG URINE QUAL NEGATIVE NORMAL: NEGATIVE [facility] HCG URINE QL REENTER NEGATIVE NORMAL: NEGATIVE [facility] { KIT LOT # [id number] ){ KIT EXP DATE 12.31.20 ){ PROCEDURAL CONTROL VALID ) ID Date Data Source [id number] 03/06/2020 10:45:00 AM EST [facility] Name Value Range Interpretation Code Description Data Tanika rce(s) Supporting Document(s) SARS coronavirus 2 RNA [facility] This lab was ordered by [facility] and reported by [facility]. Procedure Social History No Information Vital Signs ID Date Data Source UNK Name Value Range Interpretation Code Description Data Source(s) Body height 65 [in_i] 65 [in_i] [facility] ([facility]) 5'5" Body weight 142.00 [lb_av] 142.00 [lb_av] [facility] T ([facility]) Systolic blood pressure 129 mm[Hg] 129 mm[Hg] M EDENT ([facility]) Diastolic blood pressure 80 mm[Hg] 80 mm[Hg] [facility] ([facility]) Heart rate 78 /min 78 /min [facility] ([facility]) Body mass index (BMI) [Ratio] 23.6 kg/m2 23.6 k g/m2 [facility] ([facility]) Body weight 64.411 kg 64.411 kg [facility] ([facility]) Body temperature 97.2 [degF] 97.2 [degF] [facility] ([facility]) Heart rate 86 /min 86 /min [facility] ([facility]) Respiratory rate 14 /min 14 /min [facility] ( [facility], [facility]) Oxygen saturation in Arterial blood by Pulse oximetry 98 % 98 % [facility] ([facility], [facility]) Body temperature 97.5 [degF] 97.5 [degF] [facility] ([facility], [facility]) Body weight 135.00 [lb_av] 135.00 [lb_av] [facility] T ([facility]) Body height 64 [in_i] 64 [in_i] [facility] ([facility]) 5'4" Body mass index (BMI) [Ratio] 23.2 kg/m2 23.2 k g/m2 [facility] ([facility]) Systolic blood pressure 112 mm[Hg] 112 mm[Hg] EDENT ([facility], [facility]) Diastolic blood pressure 80 mm[Hg] 80 mm[Hg] [facility] ([facility]) Body weight 56.813 kg 56.813 kg [facility] ([facility]) Body height 65 [in_i] 65 [in_i] [facility] ([facility]) 5'5" Body surface area Derived from formula 1.62 m2 1.62 m2 [facility] ([facility]) Body mass index (BMI) [Ratio] 20.8 kg/m2 20.8 k g/m2 [facility] ([facility]) Systolic blood pressure--sitting 118 mm[Hg] 118 mm[Hg] [facility] ([facility]) Diastolic blood pressure--sitting 76 mm[Hg] 76 mm[Hg] [facility] ([facility]) Heart rate 84 /min 84 /min [facility] ([facility]) Body temperature 98.7 [degF] 98.7 [degF] [facility] ([facility]) Oral Respiratory rate 16 /min 16 /min [facility] ( [facility]) Oxygen saturation in Arterial blood by Pulse oximetry 99 % 99 % [facility] ([facility]) Body weight 125.25 [lb_av] 125.25 [lb_av] [facility] T ([facility]) Body height 65 [in_i] 65 [in_i] [facility], ) 5'5" Body weight 125.00 [lb_av] 125.00 [lb_av] [facility] T ([facility], ) Body mass index (BMI) [Ratio] 20.8 kg/m2 20.8 k g/m2 [facility] ([facility], ) [place] body weight 125 [lb_av] 125 [lb_av] JANESSA Gonzales ([facility], ) Body weight 56.700 kg 56.700 kg HE[facility] ([facility], ) ID Date Data Source [id number] 04/15/2020 10:36:23 AM [facility] Name Value Range Interpretation Code Description Data Source(s) WEIGHT RECORDED 130.00 pounds 130.00 pounds [facility] Height 65 Inches 065 Inches [facility]
--- OUTSIDE RECORDS SUMMARY | 2021-01-28 09:51 | CCD | Continuity of Care Document ---
Author Author David KUMAR Organization Unknown Address [address] [place] [id number] Phone [phone] Care Team Providers Care Plumbing Assembler Name Role Phone Robert Fontana MD AUTM Unavailable [facility] AUTM Problems Description No Information Available [...] Available Procedures Date Code Description Status 10/03/2020 90753 Preventive Visit New 40-64 Yrs C ompleted Medical Devices Description No Information Available Encounters Type Date Location Provider Dx Diagnosis Office Visit 10/03/2020 12:15p Main Office MINNIE Reaves Z20 .1 Contact with and (suspected) exposure to tuberculosis Assessments Date Code Description Provider 01/02/2021 Z20.828 Contact with and (torres spected) exposure to other viral communicable diseases MINNIE Reaves 10/03/2020 Z20.1 Contact with and (suspected) exp osure to tuberculosis MINNIE Reaves Plan of Treatment No Information Available Functional Status Description No Information Available Mental Status Description No Information Available Referrals Refer to Reason for Referral Status Appt Date [facility] [place] [address] [place] [address]
[2021-01-28] MEDS ORDERED: LIDOCAINE 2% 100MG/5ML SDV (FOR ANES.) As Ordered ONE (09:55)
[2021-01-28] MEDS ORDERED: propofoL 200 MG/20 ML VIAL As Ordered ONE ×2 (09:55→11:11)
[2021-01-28] MEDS ORDERED: MIDAZOLAM INJ 2MG/2ML VIAL (J2250 PER 1MG) As Ordered ONE (09:55)
[2021-01-28] MEDS ORDERED: dexameTHASONE 4 MG/ML 1ML VIAL (J1100 PER 1MG) As Ordered ONE (09:55)
[2021-01-28] MEDS ORDERED: ONDANSETRON 4MG/2ML VIAL As Ordered ONE (09:55)
[2021-01-28] MEDS ORDERED: fentaNYL 100 MCG/2 ML INJECTION (J3010) As Ordered ONE (09:55)
[2021-01-28 10:21] LABS: HEMATOCRIT 42.1 % (36.0-47.0); HEMOGLOBIN 13.8 g/dl (12.0-15.5); MEAN CORPUSCULAR HEMOGLOBIN 29.6 pg (27.0-33.0); MEAN CORPUSCULAR HGB CONC 32.8 g/dl (32.0-36.5); MEAN CORPUSCULAR VOLUME 90.3 fl (80.0-96.0); PLATELET COUNT, AUTOMATED 398 10^3/uL (150-450); RED BLOOD COUNT 4.66 10^6/uL (4.00-5.40); WHITE BLOOD COUNT 7.1 10^3/uL (4.0-10.0)
[2021-01-28] MEDS ORDERED: ACETAMINOPHEN 650 MG SUPP As Ordered ONE (10:39)
[2021-01-28 10:58] LABS: BLOOD UREA NITROGEN 8 MG/DL (7-18); CALCIUM LEVEL 9.4 MG/DL (8.5-10.1); CARBON DIOXIDE LEVEL 28 MEQ/L (21-32); CHLORIDE LEVEL 104 MEQ/L (98-107); CREATININE FOR GFR 0.68 MG/DL (0.55-1.30); GLOMERULAR FILTRATION RATE > 60.0 (>58); GLUCOSE, FASTING 106 MG/DL (70-100); HCG, SERUM QUANTITATIVE < 1.0 MIU/ML; POTASSIUM SERUM 4.5 MEQ/L (3.5-5.1); SODIUM LEVEL 135 MEQ/L (136-145)
[2021-01-28] MEDS ORDERED: KETOROLAC 60MG 2ML VIAL As Ordered ONE (11:09)
[2021-01-28] MEDS ORDERED: METOCLOPRAMIDE INJ 10MG/2ML VIAL (J2765 PER 1) As Ordered ONE (11:09)
[2021-01-28] MEDS ORDERED: LR 1,000 ML IV SCH (12:15)
[2021-01-28] MEDS ORDERED: HYDROMORPHONE HCL 0.5 MG/ 0.5 ML SYRINGE (J1170 PER 1) IV PRN (12:15)
[2021-01-28] MEDS ORDERED: fentaNYL 100 MCG/2 ML INJECTION (J3010) IV PRN (12:15)
[2021-01-28] MEDS ORDERED: oxyCODONE 5MG TAB PO PRN (12:15)
[2021-01-28] MEDS ORDERED: ONDANSETRON 4MG/2ML VIAL IV PRN (12:15)
[2021-01-28 13:00] VITALS: BP 127/81
--- NOTE | 2021-01-29 09:41 | RO ---
OPERATIVE NOTE DATE OF OPERATION: 01/28/2021 PREOPERATIVE DIAGNOSIS: Abnormal uterine bleeding, failed medical therapy. POSTOPERATIVE DIAGNOSIS: Abnormal uterine bleeding, failed medical therapy. OPERATION PROPOSED: 1. Hysteroscopy. 2. Dilatation and curettage (D and C). 3. NovaSure ablation. OPERATION PERFORMED: 1. Hysteroscopy. 2. Dilatation and curettage (D and C). 3. NovaSure ablation. ANESTHESIA: General. ESTIMATED BLOOD LOSS: Less than 50 mL. SURGEON: Bairon Dawson MD CYLINDER DEVALVER: Kalpesh Breen DO, without which the procedure could not be completed. He was required for extraction, retraction, and visualization. DESCRIPTION OF PROCEDURE: After adequate timeout, prepped and draped in the lithotomy position, bladder drained for 50 mL of clear urine, weighted speculum into the vagina, single-tooth tenaculum on the anterior lip of the cervix, uterus sounded to a depth of 9 cm, dilated to a Hegar 8, curved curette applied. Tissue was sent off to pathology under a separate cover. Then, the endometrial NovaSure ablation instrument was introduced, cavity length was 6.0, cavity width 3.5, power source was 116, and a NovaSure ablation was done for 51 seconds. The instrument was removed. Hysteroscopic evaluation, 150 mL in, 150 mL out, panoramic view showed good charring throughout the entire cavity, anterior and posterior and lateral salcedo and the cervical ostium. There was some debris that came out which followed from the ablation. The uterus was placed in anatomical position. All instruments were removed. Acetaminophen suppository 1300 mg per rectum. The patient was sent to the recovery room in good condition. [place] [facility]
== END 2021-01-28 13:23 | disposition home or self-care (01) ==
LOC: M SDC 09:47
PROVIDERS: ATTEND Obstetrics & Gynecology
DX: N93.9 Abnormal uterine and vaginal bleeding, unspecified (principal); F41.9 Anxiety disorder, unspecified; F32.9 Major depressive disorder, single episode, unspecified
CPT/HCPCS: 36415; 58563; 80048; 84702; 85027; 88305; J1100; J1885; J2250; J2405; J2765; J3010

== ENCOUNTER → 2021-04-30 | Outpatient (CLI) | payer OTHER ==
[~2021-04-30] MED LIST changes: -ACETAMINOPHEN 650 MG SUPP PR ONE; -LIDOCAINE 1% MDV 20ML VIAL SQ PRN; -LR 1,000 ML IV ONE
== END ==
LOC: M WHC 12:44
PROVIDERS: ATTEND Family Medicine
DX: Z12.31 Encounter for screening mammogram for malignant neoplasm of breast (principal)

== ENCOUNTER → 2021-05-13 | Outpatient (CLI) | payer OTHER | LOC: M WHC 10:52 | PROVIDERS: ATTEND Family Medicine | DX: R91.8 Other nonspecific abnormal finding of lung field (principal); Z12.31 Encounter for screening mammogram for malignant neoplasm of breast | CPT/HCPCS: 76642; 77065; G0279 ==

== ENCOUNTER → 2021-06-01 | Outpatient (CLI) | payer OTHER | LOC: M PLALAB 10:43 | PROVIDERS: ATTEND Surgery | DX: Z15.01 Genetic susceptibility to malignant neoplasm of breast (principal) ==

== ENCOUNTER → 2021-06-09 | Outpatient (CLI) | payer OTHER ==
[~2021-06-09] MED LIST changes: +**SFHN** LIDOCAINE 1% MDV 20ML VIAL ONE; +**SFHN** SODIUM BICARBONATE 8.4% 50MEQ 50ML VIAL ONE; +LEXA1TAB2 PO
[2021-06-09 08:55] VITALS: BP 110/78
== END ==
LOC: M WHCPRO 07:10
PROVIDERS: ATTEND Nurse Practitioner Women's Health
DX: N60.21 Fibroadenosis of right breast (principal); R92.0 Mammographic microcalcification found on diagnostic imaging of breast; N60.31 Fibrosclerosis of right breast

== ENCOUNTER → 2022-02-09 | Outpatient (CLI) | payer OTHER ==
[~2022-02-09] MED LIST changes: -**SFHN** LIDOCAINE 1% MDV 20ML VIAL ONE; -**SFHN** SODIUM BICARBONATE 8.4% 50MEQ 50ML VIAL ONE
== END ==
LOC: M PLAIMG 07:42
PROVIDERS: ATTEND Family Medicine
DX: M47.812 Spondylosis without myelopathy or radiculopathy, cervical region (principal)

== ENCOUNTER → 2022-07-14 | Outpatient (CLI) | payer OTHER | LOC: M WHC 04-13 15:02 | PROVIDERS: ATTEND Family Medicine | DX: Z12.31 Encounter for screening mammogram for malignant neoplasm of breast (principal); Z53.8 Procedure and treatment not carried out for other reasons ==

== ENCOUNTER → 2022-09-03 | Outpatient (CLI) | payer OTHER | LOC: M RAD 06:58 | PROVIDERS: ATTEND Podiatrist Foot & Ankle Surgery | DX: M65.872 Other synovitis and tenosynovitis, left ankle and foot (principal) ==